=== PATIENT | male | born 1950 | race Caucasian/White ===

== ENCOUNTER → 2017-01-30 | Outpatient (REF) ==
[~2017-01-30] MED LIST: ATARAX 25MG25 MG/TAB PO; FLONASEALLERGY NS; NYQUIL GENERIC PO; ZOCOR 40MG40 MG PO
== END ==
LOC: ZLAB.WCH 12:02
DX: Z01.89 Encounter for other specified special examinations (principal)
CPT/HCPCS: G0103

== ENCOUNTER → 2017-04-09 | Outpatient (REF) | LOC: ZLAB.WCH 11:03 | DX: Z01.89 Encounter for other specified special examinations (principal) ==

== ENCOUNTER → 2017-07-07 | Outpatient (CLI) | payer OTHER ==
[~2017-07-07] VITALS: Ht 188 cm; Wt 88.7 kg
[2017-07-07] VITALS (11 sets, daily range): BP systolic 102–139; BP diastolic 64–89; PULSE 71–84
[2017-07-07 10:32] LABS: INR 1.1 (0.8-3.0); PROTHROMBIN TIME 11.7 SECONDS (9.7-12.8)
== END ==
LOC: COL.RAD 09:47
PROVIDERS: Family Medicine
DX: K76.89 Other specified diseases of liver (principal); Z72.89 Other problems related to lifestyle; Z72.0 Tobacco use
CPT/HCPCS: 25757

== ENCOUNTER → 2018-07-15 | Outpatient (REF) | LOC: ZLAB.WCH 13:01 | DX: Z12.5 Encounter for screening for malignant neoplasm of prostate (principal) | CPT/HCPCS: G0103 ==

== ENCOUNTER 2019-04-10 12:55 | Inpatient (IN) | payer OTHER, MEDICARE ==
[~2019-04-10] VITALS: Ht 188 cm; Wt 88.5 kg
[2019-04-10] VITALS (236 sets, daily range): BP systolic 98–115; BP diastolic 60–71; PULSE 96–100; TEMP 98.2–99; O2SAT 70–100
--- NOTE | 2019-04-10 12:42 | NUR ---
Pt admitted to ICU bed 4 from [place]. Pt arrived with EMS via stretcher. Pt placed on court recording monitor upon arrival with no complaints of any pain, nausea, or discomfort. Pt only states that his abdomen feels "full". Vitals stable upon arrival. Dr. Luke and Dr. Mcdonnell notified of Pt arrival to unit. Will continue to monitor.
[2019-04-10] MEDS ORDERED: ATROVENT NASAL15 ML NS (14:52)
[2019-04-10] MEDS ORDERED: PRILOSEC 20MG20 MG PO (14:53)
[2019-04-10 15:13] LABS: HEMATOCRIT 18.8 % (42.0-52.0)
--- NOTE | 2019-04-10 15:16 | NUR ---
Admission assessment complete at this time. Plan of care reviewed at bedside with patient et family. Additional time taken to address any other educational needs or concerns.
--- NOTE | 2019-04-10 16:08 | NUR ---
Pt transported back for EGD procedure by endoscopy staff at this time. Pt denies pain or any other discomfort. Vitals stable at this time. Will continue to monitor.
--- NOTE | 2019-04-10 17:00 | NUR ---
Pt arrived back from EGD at this time. Vitals stable. Pt reports no nausea but some stomach fullness. Pt back to baseline status of pre-procedure. Will continue to monitor.
--- NOTE | 2019-04-10 19:15 | NUR ---
Bedside report given to JULISSA Goins.
--- NOTE | 2019-04-10 19:40 | NUR ---
PT HAS AN ABUNDANCE OF FLATULANCE. PT C/O EPIGASTRIC DISCOMFORT RATING IT 5/10.
--- NOTE | 2019-04-10 21:38 | NUR ---
PT FELT SUDDEN URGE TO HAVE BM, ATTEMPTED TO MAKE IT TO THE TOILET. PT HAD LOOSE BLOODY STOOL. PT CLEANED UP AND BED LINENS CHANGED. PT STATES HE FEELS BETTER SINCE THE BM. PRIOR TO THE BM PT WAS HAVING SEVERE GAS. PT WAS ABLE TO STAND WITHOUT DIFFICULTY. PT NOW RATES EPIGASTRIC PAIN/DISCOMFORT 2/10.
[2019-04-11] VITALS (424 sets, daily range): BP systolic 103–130; BP diastolic 59–81; PULSE 80–95; TEMP 97.5–98.9; O2SAT 79–100
[2019-04-11 05:38] LABS: BASO % 0.7 % (0.0-2.0); EOS # 0.2 (0.0-0.7); EOS % 3.6 % (0-4.0); GRAN # 4.2 (1.4-6.5); GRAN % 76.8 % (42.2-75.2); LYMPH # 0.4 (1.2-3.4); LYMPH % 7.2 % (20.0-51.0); MEAN CELL VOLUME 97 fl (80.0-100.0); MEAN CORPUSCULAR HGB CONC 32 g/dl (33.0-37.0); MEAN PLATELET VOLUME 10.5 fl (7.4-10.4); MONO # 0.6 (0.1-0.6); PLATELET COUNT 104 K/mm3 (130-400); RED BLOOD COUNT 2.63 M/mm3 (4.20-5.60); REDCELL DISTRIBUTION WIDTH-CV 18.7 % (11.5-14.5)
[2019-04-11 05:47] LABS: CALCIUM 8.1 mg/dL (8.4-10.2); CREATININE, serum 1.07 (0.66-1.25); POTASSIUM 4.6 mmol/L (3.4-5.0)
[2019-04-11 05:48] LABS: HEMATOCRIT 25.6 % (42.0-52.0); HEMOGLOBIN 8.2 g/dl (13.5-18.0); MEAN CORPUSCULAR HEMOGLOBIN 31 pg (27.0-31.0)
--- NOTE | 2019-04-11 08:00 | NUR ---
Shift assessment complete at this time. Plan of care reviewed at bedside with patient. Additional time taken to address any other needs or concerns. Vitals stable at this time. LR and Sandostatin gtts continue per order. Pt c/o slight abodminal discomfort that is difficult to describe. Pt wanting to try to resolve pain with food intake as tolerates and some mobility, will assist as needed. Will continue to monitor. Bed in low position, call light within reach.
--- NOTE | 2019-04-11 12:00 | NUR ---
Pt sleeping comfortably in bed. Denies pain or any other discomfort. Vitals stable at this time. Bed in low position, call light within reach, will continue to monitor.
--- NOTE | 2019-04-11 12:37 | NUR ---
Patient lives at home in [place], [place] with his (Anabel Pyle) and he plans to return home upon discharge if possible. Patient is undergoing chemotherapy for liver cancer and his is supportive of his care/needs. Patient's primary care physician is Fred Rogers, his Oncologist is Dr. Graham Bangura, and he also receives care from Dr. Shearer, his pharmacy is [facility], and he does have advance directives completed. 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 No further needs at this time and social media senior associate will follow as needed.
--- NOTE | 2019-04-11 16:00 | NUR ---
Pt experienced a large, taisha red bloody stool at this time. Vitals stable with no change to blood pressure or heart rate. Pt denies any symptomatic symptoms. Denies pain or any other discomfort. Notified Dr. Feliciano of new large bloody stool. Provider will discuss Pt with Dr. Luke and call back with any new orders. Pt status changed to IMCU per direction of Dr. Feliciano. Bed in low position, call light within reach. Will continue to monitor.
[2019-04-11 18:07] LABS: HEMOGLOBIN 7.8 g/dl (13.5-18.0)
--- NOTE | 2019-04-11 19:07 | NUR ---
Bedside report given to JULISSA Goins.
--- NOTE | 2019-04-11 19:15 | NUR ---
PT STATES TO HAVE MINIMAL EPIGASTRIC DISCOMFORT, NON-RADIATING, RATES IT 1/. PT PROVIDED FRESH WATER AND IS CONNECTED TO SCD'S. VSS.
--- NOTE | 2019-04-11 22:29 | NUR ---
PT PLACED ON 1L NC WHILE SLEEPING. PT CONTINUALLY DROPPING TO 88-91% ON SPO2 MONITOR.
[2019-04-12] VITALS (794 sets, daily range): BP systolic 100–122; BP diastolic 56–76; PULSE 93–98; TEMP 98.3–100.6; O2SAT 78–100
[2019-04-12 05:36] LABS: BASO % 0.6 % (0.0-2.0); EOS # 0.2 (0.0-0.7); EOS % 3.2 % (0-4.0); GRAN # 5.2 (1.4-6.5); GRAN % 76.9 % (42.2-75.2); LYMPH # 0.4 (1.2-3.4); LYMPH % 5.6 % (20.0-51.0); MEAN CELL VOLUME 98 fl (80.0-100.0); MEAN CORPUSCULAR HGB CONC 32 g/dl (33.0-37.0); MEAN PLATELET VOLUME 10.4 fl (7.4-10.4); MONO # 0.9 (0.1-0.6); MONO % 13.1 % (1.7-9.3); PLATELET COUNT 114 K/mm3 (130-400); RED BLOOD COUNT 2.45 M/mm3 (4.20-5.60)
[2019-04-12 05:37] LABS: HEMATOCRIT 24.1 % (42.0-52.0); HEMOGLOBIN 7.8 g/dl (13.5-18.0); MEAN CORPUSCULAR HEMOGLOBIN 32 pg (27.0-31.0)
[2019-04-12 05:49] LABS: CALCIUM 7.7 mg/dL (8.4-10.2); CREATININE, serum 1.06 (0.66-1.25); MAGNESIUM 2.1 mg/dL (1.6-2.3); POTASSIUM 4.1 mmol/L (3.4-5.0)
--- NOTE | 2019-04-12 07:10 | NUR ---
Bedside report received from JULISSA Goins.
--- NOTE | 2019-04-12 08:15 | NUR ---
Assessment complete, patient resting in bed, denies needs at this time, call light within reach.
--- NOTE | 2019-04-12 10:07 | NUR ---
First visit from the process improvement specialist. No needs right now.
--- NOTE | 2019-04-12 11:17 | NUR ---
Patient sleeping, O2 sats 87% on room air. Placed on 2L/NC.
--- NOTE | 2019-04-12 12:23 | NUR ---
Patient ambulating in hallway with his .
[2019-04-12 17:34] LABS: MUCOUS Present /lpf; PH 5 (5-8); SQUAMOUS EPITHELIAL 0-2 /hpf; URINE APPEARANCE Clear; URINE BACTERIA None Seen /hpf; URINE BILIRUBIN Negative (NEGATIVE); URINE BLOOD 2+ (NEGATIVE); URINE COLOR Amber; URINE GLUCOSE Negative (NEGATIVE); URINE KETONE Negative (NEGATIVE); URINE LEUKOCYTE ESTERASE Negative (NEGATIVE); URINE NITRATE Negative (NEGATIVE); URINE PROTEIN(semi-quant) Negative (NEGATIVE); URINE UROBILINOGEN Negative (NEGATIVE)
[2019-04-12 17:43] LABS: COLLECTION METHOD CLEAN CATCH
--- NOTE | 2019-04-12 19:00 | NUR ---
Received bedside report from JULISSA Mann. Patient care transfered.
--- NOTE | 2019-04-12 19:14 | NUR ---
Bedside report given to JULISSA Medina, oral temperature 101.9 at this time.
--- NOTE | 2019-04-12 19:45 | NUR ---
Assessment complete; Temp 101.9 at shift change. JULISSA Mann attempted to notify hospitalist but no reply; will re-attempt. Patient reports some upper stomach lower mid chest discomfort. Reports pain has been intermittent since arrival. No BM reported today. Will continue to monitor.
[2019-04-13] VITALS (692 sets, daily range): BP systolic 108–123; BP diastolic 71–79; PULSE 92–96; TEMP 98.2–100.5; O2SAT 54–100
[2019-04-13 05:20] LABS: HEMATOCRIT 24.1 % (42.0-52.0); HEMOGLOBIN 7.8 g/dl (13.5-18.0); MEAN CELL VOLUME 96 fl (80.0-100.0); MEAN CORPUSCULAR HEMOGLOBIN 31 pg (27.0-31.0); MEAN CORPUSCULAR HGB CONC 32 g/dl (33.0-37.0); MEAN PLATELET VOLUME 10.8 fl (7.4-10.4); PLATELET COUNT 110 K/mm3 (130-400); RED BLOOD COUNT 2.51 M/mm3 (4.20-5.60); REDCELL DISTRIBUTION WIDTH-CV 19.4 % (11.5-14.5)
[2019-04-13 05:30] LABS: ALBUMIN 2.5 gm/dL (3.5-5.0); CALCIUM 7.5 mg/dL (8.4-10.2); CREATININE, serum 0.91 (0.66-1.25); POTASSIUM 3.6 mmol/L (3.4-5.0); TOTAL PROTEIN 6.6 gm/dL (6.4-8.2)
--- NOTE | 2019-04-13 07:10 | NUR ---
Bedside report recieved from JULISSA Medina. Patient awake and participates. Octreotide infuses at ordered rate as made by pharmacy to right chest PAC. Bed in low and locked position, call light within reach, rails up x2. Care assumed.
[2019-04-13 10:09] LABS: ARTERIAL BLD GAS O2 SATURATION 91.5 % (92-100); ARTERIAL BLD GAS TCO2 CT 22.1; ARTERIAL BLOOD GAS BASE EXCESS -1.9 (-2-2); ARTERIAL BLOOD GAS HCO3 21.1 meq/L (22-26); ARTERIAL BLOOD GAS PO2 62.5 mmHg (80-100); ARTERIAL BLOOD GAS pH 7.47 (7.35-7.45)
--- NOTE | 2019-04-13 11:18 | NUR ---
Follow up visit from the routing machine operator. No needs right now.
--- NOTE | 2019-04-13 12:45 | NUR ---
Shift report received from JULISSA Kaur. Patient is sitting up in the chair with no complaints or concerns. Full assessment complete. Patient remains stable. Call light placed within reach.
--- NOTE | 2019-04-13 13:43 | NUR ---
EXERCISE OXIMETRY DONE AT THIS TIME. PATIENT WALKED FOR 5 MINUTES. SPO2 ON RA AT REST: 96% SPO2 WHILE WALKING ON RA: 94% SPO2 DID DROP TO 89% AT ONE TIME. THIS RT INSTRUCTED PATIENT TO TAKE A DEEP BREATH AND SPO2 WENT BACK UP TO 94% OXYGEN IS NOT NEEDED.
[2019-04-13 15:37] LABS: CALCIUM 7.5 mg/dL (8.4-10.2); CREATININE, serum 0.85 (0.66-1.25); POTASSIUM 3.6 mmol/L (3.4-5.0)
[2019-04-13] MEDS ORDERED: LEVAQUIN 750MG750 M1 PO (17:27)
--- NOTE | 2019-04-13 18:52 | NUR ---
Discharge planning completed. Patient has no questions or concerns at this time. Port-a-cath de-accessed with no complications. Patient called his to come and pick him up. Patient has gotten dressed and gathered all of his belongings. Patient is sitting in his room awaiting his ride at this time.
== END 2019-04-13 18:52 | disposition home or self-care (01) | DRG 369 ==
LOC: ICU 12:55
PROVIDERS: Hospitalist; Internal Medicine; Internal Medicine Gastroenterology; Physician Assistant; ADMIT Internal Medicine
PROC: 06L38CZ Occlusion of Esophageal Vein with Extraluminal Device, Via Natural or Artificial Opening Endoscopic (ICD-10-PCS; principal; 2019-04-10 16:00)
DX: I85.01 Esophageal varices with bleeding (principal); C78.7 Secondary malignant neoplasm of liver and intrahepatic bile duct; C78.6 Secondary malignant neoplasm of retroperitoneum and peritoneum; D62 Acute posthemorrhagic anemia; R09.02 Hypoxemia; G47.00 Insomnia, unspecified; R63.4 Abnormal weight loss; Z68.23 Body mass index [BMI] 23.0-23.9, adult; Z79.82 Long term (current) use of aspirin; Z87.891 Personal history of nicotine dependence; Z85.068 Personal history of other malignant neoplasm of small intestine
CPT/HCPCS: 99222-AI; 99233-AI; 99239; A9284; C9113; J1940; J2250; J2354; J2405; J2704; J7040; J7120; P9016

== ENCOUNTER → 2019-04-19 | Outpatient (CLI) | payer OTHER ==
[~2019-04-19] VITALS: Ht 188 cm; Wt 85.5 kg
[~2019-04-19] MED LIST changes: +ATROVENT NASAL15 ML NS; +LEVAQUIN 750MG750 M1 PO; +PRILOSEC 20MG20 MG PO
[2019-04-19 13:10] VITALS: BP 137/82; PULSE 98
[2019-04-19 14:45] VITALS: BP 168/85; PULSE 100
--- NOTE | 2019-04-19 15:00 | NUR ---
PT WAS WALKED TO FRONT LOBBY WHERE WE WAITED FOR HIS TO DRIVE UP. PT AMBUALTED TO POV AND GOT IN WITHOUT DIFFICULTY
[2019-04-19 15:12] LABS: PERITONEAL -POLYMORPHONUCLEAR 4.2 % (0-25); PERITONEAL FLUID RBC 0 /mm3 (0-0)
== END ==
LOC: COL.RAD 12:27
PROVIDERS: Internal Medicine
DX: R18.8 Other ascites (principal); Z85.068 Personal history of other malignant neoplasm of small intestine
CPT/HCPCS: 19804

== ENCOUNTER 2019-05-04 16:41 | Inpatient (IN) | payer OTHER, MEDICARE ==
[2019-05-04] VITALS (8 sets, daily range): BP systolic 95–107; BP diastolic 51–63; PULSE 87–99; TEMP 98.3–99
[~2019-05-04] VITALS: Ht 188 cm; Wt 82.3 kg
--- NOTE | 2019-05-04 17:25 | NUR ---
Patient arrived to room at 1710 accompanied by . Was direct admit from GI office. Stated that he had been experiencing dark stools which then turned into coffee ground stools. He stated he recently had an EGD with banding to esophageal varicies. Since then he reports his appetite has been fair to poor. Patient is able to ambulate in room without difficulty providing he isnt hooked up to IV pole. Requests commode be placed by side of bed as he experiences chronic diarrhea. Notifies staff that his abdomen feels like it is full of fluid and indcated that he had 3L of fluid drained from abdomen a while ago and he felt much better. Currently he is denying pain and is resting in bed conversing with staff. Respirations are even and nonlabored. Denies having any skin issues, does report he has a large hemorrhoid. Dr. Feliciano in to see patient and has placed him on a clear liquid diet until midnight and then NPO as he is to have an EGD in the morning. Call light and personal items are within reach.
[2019-05-04 18:55] LABS: BASO % 0.2 % (0.0-2.0); EOS # 0.2 (0.0-0.7); EOS % 4.6 % (0-4.0); GRAN # 2.7 (1.4-6.5); GRAN % 64.6 % (42.2-75.2); LYMPH # 0.6 (1.2-3.4); LYMPH % 14.5 % (20.0-51.0); MEAN CELL VOLUME 94 fl (80.0-100.0); MEAN CORPUSCULAR HGB CONC 31 g/dl (33.0-37.0); MEAN PLATELET VOLUME 10.3 fl (7.4-10.4); MONO # 0.6 (0.1-0.6); MONO % 15.4 % (1.7-9.3); PLATELET COUNT 168 K/mm3 (130-400); RED BLOOD COUNT 2.17 M/mm3 (4.20-5.60); REDCELL DISTRIBUTION WIDTH-CV 17.9 % (11.5-14.5)
[2019-05-04 19:04] LABS: HEMATOCRIT 20.4 % (42.0-52.0); HEMOGLOBIN 6.4 g/dl (13.5-18.0); MEAN CORPUSCULAR HEMOGLOBIN 29 pg (27.0-31.0)
[2019-05-04 19:05] LABS: ALBUMIN 2.7 gm/dL (3.5-5.0); BILIRUBIN,TOTAL 0.9 mg/dL (0.0-1.0); CALCIUM 8.4 mg/dL (8.4-10.2); CREATININE, serum 1.03 (0.66-1.25); MAGNESIUM 2.3 mg/dL (1.6-2.3); POTASSIUM 4.2 mmol/L (3.4-5.0); TOTAL PROTEIN 7.1 gm/dL (6.4-8.2)
[2019-05-04 19:12] LABS: INR 1.1 (0.8-3.0); PROTHROMBIN TIME 12.6 SECONDS (9.7-12.8)
[2019-05-05] VITALS (13 sets, daily range): BP systolic 103–118; BP diastolic 62–74; PULSE 72–88; TEMP 97.2–98.8
--- NOTE | 2019-05-05 00:40 | NUR ---
Patient assessed around 2029. Alert and oriented, and able to make needs known. Denies having pain and discomfort. Peripheral IV to right hand. Site patent, and area is without redness, warmth, swelling, and pain. Patient has a port to right chest, but denies wanting site accessed at this time. LS CTA. Respirations even and unlabored. Does report mild SOB, worse with exertion. HRR. BSAx4. Patient reports frequent loose stools, which he reports is not new for patient. No edema noted. Hemoglobin was 6.4, and called to nurse practitioner at beginning of shift. Blood transfussion started at approximately 2130. This nurse stayed with patient for the first 15 minutes. Patient tolerated well. Increased rate from 60 ml/hr to 120 ml/hr. Blood transfusion completed at approximately 2355. Order placed to recheck H&H at 0100 (1 hour after transfusion is complete) per orders. Patient tolerated transfusion well. Has had one episode of loose stools, black/tarry. Resting in bed with eyes closed at this time. Call light is within reach. Voices no other needs or concerns at this time.
[2019-05-05 01:20] LABS: HEMATOCRIT 21.4 % (42.0-52.0); HEMOGLOBIN 6.9 g/dl (13.5-18.0)
--- NOTE | 2019-05-05 01:21 | NUR ---
HMG 6.9. Notified SLATE ROOFER HELPER. Orders received.
--- NOTE | 2019-05-05 02:59 | NUR ---
Blood transfussion started at approximately 0245.
--- NOTE | 2019-05-05 04:45 | NUR ---
Transfusion complete at this time.
--- NOTE | 2019-05-05 05:52 | NUR ---
Patient transfused x2 units of blood throughout night. Tolerated well. Lab in room this AM for repeat H&H. Otherwise uneventful night. Call light in reach.
[2019-05-05 06:05] LABS: MEAN CELL VOLUME 93 fl (80.0-100.0); MEAN CORPUSCULAR HGB CONC 31 g/dl (33.0-37.0); MEAN PLATELET VOLUME 10.2 fl (7.4-10.4); PLATELET COUNT 160 K/mm3 (130-400); RED BLOOD COUNT 2.78 M/mm3 (4.20-5.60); REDCELL DISTRIBUTION WIDTH-CV 17.2 % (11.5-14.5)
[2019-05-05 06:09] LABS: HEMATOCRIT 25.9 % (42.0-52.0); HEMOGLOBIN 8.1 g/dl (13.5-18.0); MEAN CORPUSCULAR HEMOGLOBIN 29 pg (27.0-31.0)
[2019-05-05 06:20] LABS: ANISOCYTOSIS 1+; BAND 2 % (0-10); EOSINOPHIL 5 % (0-4); LYMPHOCYTE 9 % (20.0-51.0); NEUTROPHILS 73 % (42.0-75.2); PLATELET ESTIMATE NORMAL (NORMAL)
[2019-05-05 06:21] LABS: ALBUMIN 2.6 gm/dL (3.5-5.0); BILIRUBIN,TOTAL 1.2 mg/dL (0.0-1.0); CALCIUM 8.2 mg/dL (8.4-10.2); CREATININE, serum 1.17 (0.66-1.25); MAGNESIUM 2.3 mg/dL (1.6-2.3); POTASSIUM 4.6 mmol/L (3.4-5.0); TOTAL PROTEIN 6.8 gm/dL (6.4-8.2)
--- NOTE | 2019-05-05 06:42 | NUR ---
Report given to JULISSA Raza
--- NOTE | 2019-05-05 07:04 | NUR ---
Received report, upon entering room patient is observed to be laying on left side with eyes closed. Respirations are even and nonlabored. Call light and personal items are within reach.
--- NOTE | 2019-05-05 09:33 | NUR ---
Obtained consent from patient for EGD today. Patient stated he received 2 units of blood last night and is feeling much better. Is in bed with head elevated with a visitor at bedside.
--- NOTE | 2019-05-05 16:13 | NUR ---
SW met with the patient to discuss discharge plan. The patient lives in [place] with his , Anabel. He reports independence with ADLs and does not use any DME. The patient's PCP is Dr. Fred Rogers and he receives his medications from [facility]. He reports no difficulties obtaining his meds. The patient's advanced directives are in EMR. The patient plans to return home with his upon discharge. No additional needs at this time.
--- NOTE | 2019-05-05 21:00 | NUR ---
Initial shift assessment done- denies pain at this time- visiting with family, denies nausea, IV has NS at 100cc/hr, also has sandostatin at 50.5cc/hr . Tolerating clear liquids .
--- NOTE | 2019-05-05 23:00 | NUR ---
Having some epigastric pain 03/10-- does not have orders for pain meds at this time, Olive CORTEZ called- order obtained for Morphine IV every 2hours prn-
[2019-05-06] VITALS (7 sets, daily range): BP systolic 100–115; BP diastolic 59–79; PULSE 76–88; TEMP 97.5–98.4
--- NOTE | 2019-05-06 05:57 | NUR ---
Quiet night- VSS, medicated with Morphine IV x2 tonight- effective for epigastric pain control- Continues with NS IV fluids and Sandostatin IV at 50mcg /hr
--- NOTE | 2019-05-06 07:00 | NUR ---
resting in bed, bedside shift report received from JULISSA Webster
[2019-05-06 07:04] LABS: BASO % 0.7 % (0.0-2.0); EOS # 0.3 (0.0-0.7); EOS % 6.1 % (0-4.0); GRAN # 2.8 (1.4-6.5); GRAN % 69.1 % (42.2-75.2); LYMPH # 0.5 (1.2-3.4); LYMPH % 11.3 % (20.0-51.0); MEAN CELL VOLUME 95 fl (80.0-100.0); MEAN CORPUSCULAR HGB CONC 30 g/dl (33.0-37.0); MEAN PLATELET VOLUME 10.1 fl (7.4-10.4); MONO # 0.5 (0.1-0.6); MONO % 12.3 % (1.7-9.3); PLATELET COUNT 168 K/mm3 (130-400); RED BLOOD COUNT 2.79 M/mm3 (4.20-5.60); REDCELL DISTRIBUTION WIDTH-CV 17.5 % (11.5-14.5)
[2019-05-06 07:06] LABS: HEMATOCRIT 26.4 % (42.0-52.0); MEAN CORPUSCULAR HEMOGLOBIN 29 pg (27.0-31.0)
[2019-05-06 07:15] LABS: ANION GAP 4 mmol/L (7-16); BLOOD UREA NITROGEN 17 mg/dL (9-20); CALCIUM 7.8 mg/dL (8.4-10.2); CARBON DIOXIDE 24 mmol/L (22-30); CHLORIDE 108 mmol/L (98-107); CREATININE, serum 1.19 (0.66-1.25); GLUCOSE 112 mg/dL (74-106); POTASSIUM 4.2 mmol/L (3.4-5.0); SODIUM 136 mmol/L (137-145)
--- NOTE | 2019-05-06 07:15 | NUR ---
c/o pain 4/10 across top of abdomen, medicated with morphine 2mg slow IV per his request, full assessment completed, see interventions for further info, encouraged to rest after morphine
[2019-05-06 07:28] LABS: TROPONIN-I < 0.012 ng/mL (0.000-0.035)
--- NOTE | 2019-05-06 07:40 | NUR ---
new telemetry electrodes changed
--- NOTE | 2019-05-06 09:00 | NUR ---
Dr Wise and care team in to see patient, he's resting in bed at this time, had jello and tolerated well, IV fluids stopped, Octreotide will continue to infuse, reminded him he can now have full liquids and verbalizes understanding
--- NOTE | 2019-05-06 09:00 | NUR ---
resting in bed visiting with friends
--- NOTE | 2019-05-06 10:40 | NUR ---
c/o pain again accross top of abdomen at 02/07, medicated with morphine 1mg slow IV
--- NOTE | 2019-05-06 11:59 | NUR ---
appears to be sleeping, in bed with lights off, eyes closed, resp quiet and easy
--- NOTE | 2019-05-06 13:42 | NUR ---
resting in bed visiting with luciano, explanation given to patient and his grandaughter regarding waiting for a paracentesis at this time
--- NOTE | 2019-05-06 14:16 | NUR ---
continues to rest in bed with luciano at bedside
--- NOTE | 2019-05-06 14:25 | NUR ---
Dr Wise was in to see manolo
--- NOTE | 2019-05-06 15:38 | NUR ---
appears to be sleeping, bedside shift report given to JULISSA Smith
--- NOTE | 2019-05-06 21:45 | NUR ---
Patient assessed around 1930. Alert and oriented, and able to make needs known. Denies having pain and discomfort. Peripheral INT to right hand. Site flushed. Area is without redness, warmth, swelling, pain, and discomfort. LS CTA. Denies having SOB and dyspnea. HRR. BSAx4. No edema noted. Resting in bed watching TV at this time. Call light is within reach. Voices no needs, concerns, or questsions at this time.
--- NOTE | 2019-05-07 03:49 | NUR ---
Patient has been resting in bed with eyes closed. Has tolerated diet well without any complaints of nausea or upset stomach. Voices no needs or concerns at this time. Resting in bed with eyes closed. Call light is within reach.
[2019-05-07 04:52] VITALS: BP 121/74; PULSE 80; TEMP 97.9
[2019-05-07 06:14] LABS: EOS # 0.2 (0.0-0.7); GRAN # 2.5 (1.4-6.5); GRAN % 66.4 % (42.2-75.2); LYMPH # 0.5 (1.2-3.4); MEAN CELL VOLUME 95 fl (80.0-100.0); MEAN CORPUSCULAR HGB CONC 31 g/dl (33.0-37.0); MEAN PLATELET VOLUME 9.6 fl (7.4-10.4); MONO # 0.5 (0.1-0.6); MONO % 14.1 % (1.7-9.3); PLATELET COUNT 187 K/mm3 (130-400); RED BLOOD COUNT 2.94 M/mm3 (4.20-5.60); REDCELL DISTRIBUTION WIDTH-CV 17.5 % (11.5-14.5)
[2019-05-07 06:20] LABS: HEMATOCRIT 27.8 % (42.0-52.0); HEMOGLOBIN 8.6 g/dl (13.5-18.0); MEAN CORPUSCULAR HEMOGLOBIN 29 pg (27.0-31.0)
[2019-05-07 06:24] LABS: ALBUMIN 2.5 gm/dL (3.5-5.0); BILIRUBIN,TOTAL 0.9 mg/dL (0.0-1.0); CALCIUM 7.8 mg/dL (8.4-10.2); CREATININE, serum 1.08 (0.66-1.25); POTASSIUM 3.6 mmol/L (3.4-5.0); TOTAL PROTEIN 6.9 gm/dL (6.4-8.2)
--- NOTE | 2019-05-07 06:35 | NUR ---
Patient has denied having pain and discomfort. Voices no needs or concerns. Resting in bed with eyes closed at this time. Call light is within reach.
[2019-05-07 07:16] VITALS: BP 119/72; PULSE 91; TEMP 98.3
--- NOTE | 2019-05-07 07:39 | NUR ---
Report given to day shift nurse.
--- NOTE | 2019-05-07 07:45 | NUR ---
Tele called regarding patient leads. Checked on patient during shift change, patient laying in bed, A&O. Will adjust leads during assessment.
--- NOTE | 2019-05-07 09:01 | NUR ---
Tele called about patient leads. This nurse has been in to adjust leads. Still not receiving good signal. May need new box. Patient possibly discharging. Patient laying in bed, A&O, VSS.
--- NOTE | 2019-05-07 09:05 | NUR ---
Patient sitting in recliner upon entry. Assessment complete and charted. patient denies chest pain, N/V, dizziness, SOB. Lung sounds clear, Heart RRR. Pulses strong bilaterally. Patient ambulating in room, on room air. denies other needs. VSS. Call light within reach.
--- NOTE | 2019-05-07 13:02 | NUR ---
patient discharged. Discharge instructions and summary reviewed and discussed. All questions answered. RFA INT IV discontinued. Catheter tip intact, no complications. This nurse escorted patient out, ambulatory.
== END 2019-05-07 13:04 | disposition home or self-care (01) | DRG 441 ==
LOC: MEDICAL 16:41
PROVIDERS: Internal Medicine Gastroenterology; Physician Assistant; ADMIT Internal Medicine
PROC: 06L38CZ Occlusion of Esophageal Vein with Extraluminal Device, Via Natural or Artificial Opening Endoscopic (ICD-10-PCS; principal; 2019-05-05 14:30)
DX: K76.6 Portal hypertension (principal); I85.11 Secondary esophageal varices with bleeding; C78.7 Secondary malignant neoplasm of liver and intrahepatic bile duct; F17.210 Nicotine dependence, cigarettes, uncomplicated; R07.9 Chest pain, unspecified; D50.0 Iron deficiency anemia secondary to blood loss (chronic); Z85.068 Personal history of other malignant neoplasm of small intestine
CPT/HCPCS: 99232-AI; C9113; G0378; J2270; J2354; J2704; J7030; J7040; P9016

== ENCOUNTER → 2019-05-17 | Outpatient (CLI) | payer OTHER ==
[~2019-05-17] VITALS: Ht 188 cm; Wt 81.8 kg
[~2019-05-17] MED LIST changes: +IMODIUM 2MG CAPS2 MG PO
[2019-05-17 14:05] VITALS: BP 135/80; PULSE 97
[2019-05-17 15:41] VITALS: BP 131/80; PULSE 91
--- NOTE | 2019-05-17 15:49 | NUR ---
PT TAKEN TO LOBBY WHERE WE PICKE UP HIS . THEY LEFT AMABULATORY TO POV
== END ==
LOC: COL.RAD 13:45
DX: C24.1 Malignant neoplasm of ampulla of Vater (principal); R18.8 Other ascites; Z85.068 Personal history of other malignant neoplasm of small intestine

== ENCOUNTER → 2019-06-09 | Outpatient (CLI) | payer OTHER, MEDICARE ==
[~2019-06-09] VITALS: Ht 188 cm; Wt 82.5 kg
[~2019-06-09] MED LIST changes: +DECADRON 4MG TAB4 MG PO
[2019-06-09 14:07] VITALS: BP 114/67; PULSE 106
[2019-06-09 15:20] VITALS: BP 128/78; PULSE 100
== END ==
LOC: COL.RAD 13:54
DX: C24.1 Malignant neoplasm of ampulla of Vater (principal); R18.8 Other ascites; Z85.068 Personal history of other malignant neoplasm of small intestine

== ENCOUNTER → 2019-06-14 | Outpatient (CLI) | payer OTHER, MEDICARE | LOC: COL.RAD 11:44 | DX: C24.1 Malignant neoplasm of ampulla of Vater (principal); S36.92XA Contusion of unspecified intra-abdominal organ, initial encounter; K70.11 Alcoholic hepatitis with ascites; D64.9 Anemia, unspecified; S30.22XA Contusion of scrotum and testes, initial encounter ==

== ENCOUNTER 2019-07-02 07:02 | Day surgery (SDC) | payer MEDICARE, OTHER ==
[~2019-07-02] VITALS: Ht 188 cm; Wt 80.2 kg
[2019-07-02 07:33] VITALS: BP 120/79; PULSE 79; TEMP 97.8
[2019-07-02] MEDS ORDERED: ALDACTONE 25MG25 M1 PO (07:44)
[2019-07-02] MEDS ORDERED: QUESTRAN4 GM/9 GM PO (07:47)
[2019-07-02] MEDS ORDERED: ATROVENT NASAL15 ML NS (07:49)
[2019-07-02] MEDS ORDERED: NORCO 325 MG-51 TAB PO (07:54)
[2019-07-02] MEDS ORDERED: COLACE 100100 MG/CAP PO (07:55)
[2019-07-02] MEDS ORDERED: PREPH RC (07:56)
[2019-07-02] MEDS ORDERED: ANUSOL-HC SUPPO25 MG RC (07:57)
--- NOTE | 2019-07-02 07:59 | NUR ---
TO BAY 2 AT 0711- CALL LIGHT IN REACH AT BEDSIDE.
[2019-07-02 08:37] VITALS: BP 116/80; PULSE 74; TEMP 97.8
--- NOTE | 2019-07-02 08:37 | NUR ---
Patient arrives to post-op bay 2 via cart, accompanied by endo RN. Bedside report received. Patient is alert and oriented. Ambulates to chair in room. Monitoring applied - VSS and WNL on room air. Spouse at the bedside. Offered and receives juice to drink - tolerates well. Call light in reach.
--- NOTE | 2019-07-02 08:42 | NUR ---
Dr. Luke at the bedside.
[2019-07-02 08:45] VITALS: BP 134/83; PULSE 75
[2019-07-02 09:00] VITALS: BP 135/89; PULSE 72
--- NOTE | 2019-07-02 09:00 | NUR ---
VSS and WNL on room air. Patient tolerated PO well. Denies any needs at this time.
--- NOTE | 2019-07-02 09:19 | NUR ---
Discharge criteria has been met. Discharge instructions discussed, denies any questions, and verbalizes understanding. PIV removed with catheter intact and hemostasis achieved. Patient changes to clothing independently. Escorted to exit via wheelchair. Discharged to home with ride in private vehicle at 0919.
== END 2019-07-02 09:19 | disposition home or self-care (01) ==
LOC: SDCO 07:02
DX: I85.00 Esophageal varices without bleeding (principal); K74.60 Unspecified cirrhosis of liver; K76.6 Portal hypertension; I85.10 Secondary esophageal varices without bleeding; F17.210 Nicotine dependence, cigarettes, uncomplicated; K21.9 Gastro-esophageal reflux disease without esophagitis; E78.5 Hyperlipidemia, unspecified; C20 Malignant neoplasm of rectum; C78.7 Secondary malignant neoplasm of liver and intrahepatic bile duct; D63.8 Anemia in other chronic diseases classified elsewhere; Z79.899 Other long term (current) drug therapy; D49.2 Neoplasm of unspecified behavior of bone, soft tissue, and skin; D50.0 Iron deficiency anemia secondary to blood loss (chronic)
CPT/HCPCS: OP; J2704

== ENCOUNTER → 2020-01-13 | Outpatient (CLI) | payer MEDICARE, OTHER ==
[~2020-01-13] VITALS: Ht 188 cm; Wt 91.1 kg
[~2020-01-13] MED LIST changes: +ALDACTONE 25MG25 M1 PO; +ANUSOL-HC SUPPO25 MG RC; +COLACE 100100 MG/CAP PO; +NORCO 325 MG-51 TAB PO; +PREPH RC; +QUESTRAN4 GM/9 GM PO; +ZARXIO300 MCG/0. IJ
[2020-01-13 12:40] VITALS: BP 132/82; PULSE 100
[2020-01-13 14:05] VITALS: BP 136/76; PULSE 103
== END ==
LOC: COL.RAD 12:33
DX: C24.1 Malignant neoplasm of ampulla of Vater (principal)

== ENCOUNTER → 2020-01-25 | Outpatient (CLI) | payer MEDICARE, OTHER ==
[~2020-01-25] VITALS: Ht 188 cm; Wt 91.6 kg
[2020-01-25 08:22] VITALS: BP 137/92; PULSE 113
--- NOTE | 2020-01-25 08:36 | NUR ---
pt taken to ultrasound
[2020-01-25 09:45] VITALS: BP 137/76; PULSE 103
[2020-01-25 10:17] LABS: PERITONEAL -POLYMORPHONUCLEAR 15.8 % (0-25); PERITONEAL FLUID RBC 25000 /mm3 (0-0)
== END ==
LOC: COL.RAD 08:01
PROVIDERS: Internal Medicine
DX: R18.8 Other ascites (principal); C24.1 Malignant neoplasm of ampulla of Vater

== ENCOUNTER → 2020-02-07 | Outpatient (CLI) | payer MEDICARE, OTHER ==
[~2020-02-07] VITALS: Ht 188 cm; Wt 95.5 kg
[~2020-02-07] MED LIST changes: +LASIX 20MG TABL20 MG PO; +MELATONIN5 M1 SL; +PRIL40 PO
[2020-02-07 08:38] VITALS: BP 131/71; PULSE 113
[2020-02-07 10:10] VITALS: BP 116/71; PULSE 108
== END ==
LOC: COL.RAD 08:19
DX: C24.1 Malignant neoplasm of ampulla of Vater (principal); R18.8 Other ascites

== ENCOUNTER → 2020-02-21 | Outpatient (CLI) | payer MEDICARE, OTHER ==
[~2020-02-21] VITALS: Ht 188 cm; Wt 86.0 kg
[2020-02-21 13:17] VITALS: BP 102/65; PULSE 113
--- NOTE | 2020-02-21 15:05 | NUR ---
Pt from radiology for albumin infusion post para.
[2020-02-21 15:51] VITALS: BP 97/55; PULSE 108
== END ==
LOC: COL.RAD 02-18 13:15
DX: R18.8 Other ascites (principal)
CPT/HCPCS: P9047